=== PATIENT | female | born 2000 | race Caucasian/White ===

== ENCOUNTER 2021-01-03 01:18 | Emergency (ER) | payer OTHER | END 2021-01-03 02:08 | disposition home or self-care (01) | LOC: CSHERS 01:18 | DX: S01.01XA Laceration without foreign body of scalp, initial encounter (principal); F17.290 Nicotine dependence, other tobacco product, uncomplicated; W22.8XXA Striking against or struck by other objects, initial encounter | CPT/HCPCS: 12002 ==

== ENCOUNTER 2021-01-03 12:48 | Emergency (ER) | payer OTHER | END 2021-01-03 15:09 | disposition home or self-care (01) | LOC: CSHERS 12:48 | DX: S01.01XA Laceration without foreign body of scalp, initial encounter (principal); F17.290 Nicotine dependence, other tobacco product, uncomplicated; W22.8XXA Striking against or struck by other objects, initial encounter | CPT/HCPCS: 70450 ==

== ENCOUNTER 2021-01-13 14:15 | Emergency (ER) | payer OTHER | END 2021-01-13 14:58 | disposition home or self-care (01) | LOC: CSHERS 14:15 | DX: Z48.00 Encounter for change or removal of nonsurgical wound dressing (principal); S01.01XD Laceration without foreign body of scalp, subsequent encounter; F17.200 Nicotine dependence, unspecified, uncomplicated; W25.XXXD Contact with sharp glass, subsequent encounter ==